=== PATIENT | male | born 1935 | race Caucasian/White ===

== ENCOUNTER 2020-05-30 13:33 | Emergency (ER) | payer MEDICARE ==
[~2020-05-30] VITALS: Ht 177.8 cm; Wt 82.0 kg
--- NOTE | 2020-05-30 13:40 | NUR ---
UNABLE TO GET BP AND TEMP. PT IN TOO MUCH PAIN IN TRIAGE
[2020-05-30] MEDS ORDERED: ONDANSETRON 2MG/ML, 2ML ONE (13:50)
[2020-05-30] MEDS ORDERED: MORPHINE SULFATE 4 MG/ML, 1ML ONE ×2 (13:51→14:21)
[2020-05-30] MEDS: MORPHINE SULFATE 4 MG/ML, 1ML IVPush PRN ×2 (13:52→14:22)
[2020-05-30] MEDS ORDERED: SODIUM CHLORIDE FLUSH 10ML SYR IVF ONE (14:00)
[2020-05-30] MEDS ORDERED: ONDANSETRON 2MG/ML, 2ML IVPush ONE (14:00)
--- NOTE | 2020-05-30 14:24 | NUR ---
PT MEDICTED PER MAR FOR PAIN
[2020-05-30] MEDS ORDERED: PROPOFOL 10 MG/ML, 20ML IVPush ONE (14:30)
[2020-05-30] MEDS ORDERED: PROPOFOL 10 MG/ML, 20ML ONE (14:41)
--- NOTE | 2020-05-30 15:25 | NUR ---
RN, TECH X2, MD AND PA AT BEDSIDE FOR CONSCIOUS SEDATION AND L SHOULDER REDUCTION. MD ADMINISTERED 70MG OF IV PROPROFOL, GOOD SEDATION ACHEIVED, THEN MD AND PA ABLE TO REDUCE SHOULDER. FOLLOW UP IMAGING ORDERED. PT THEN NOTED TO BE COME APNEIC, RN BAGGED PT WITH GOOD CHEST RISE AND FALL. MD AND RN X3 IN ROOM TO ASSIST, AFTER A COUPLE RESCUE BREATHS PT ABLE TO BECOME MORE ALERT AND START TAKING SPONTANEOUS RESPIRATIONS. TECH ABLE TO PLACE SHOULDER IMMOBILIZER, XRAY IN ROOM TO TAKE IMAGES. PT NOW MORE ALERTY, ANSWERS QUESTIONS APPROPRIATELY. MOVING ALL EXTRMITIES. RN CONTINUES AT BEDSIDE TO MONITOR. PT NOW VERY TALKATIVE.
--- NOTE | 2020-05-30 15:38 | NUR ---
PT BROTHER IN ROOM. PT STILL NEEDS SUPPLEMENTAL O2 TO MAINTAIN SATURATION ABOUT 95%, PT SAT UP AND ENCOURAGED TO COUGH AND DEEP BREATHE, FOLLOWS COMMANDS WELL. PT SATTING WELL ON NC AT 3L/MIN. NO SIGNS OR SYMPTOMS OF ACUTE DISTRESS NOTED, PT CONVERSING IN LONG SENTENCES, RESPIRATIONS EVEN AND UNLABORED.RN AT BEDSIDE TO MONITOR.
--- NOTE | 2020-05-30 16:09 | NUR ---
REG AT BESIDE TO TAKE INFORMATION, RN X2 AT BEDSIDE TO ASSESS. PT CONTINUES TO HAVE LOW O2 SATURATION ON ROOM AIR, RN AT BEDSIDE TO MONITOR AND TITRATE OXYGEN. PT IN BED, ALERT AND CONVERSANT. DENIES PAIN, NO SIGNS OR SYMPTOMS OF ACUTE DISTRESS NOTED RESPIRATIONS EVEN AND UNLABORED. ETCO2 30.
--- NOTE | 2020-05-30 16:14 | NUR ---
DR REYES AT BEDSIDE TO ASSESS STATES THAT PT IS READY TO DC. PT GIVEN INSTRUCTIONS FOR FOLLOW UP AND SPLINT USAGE, EDUCATED ON PROPER SHOULDER EXERCISES TO DO. PT AND BROTHER VERBALIZE UNDERSTANDING AND AGREEMENT. NO SIGNS OR SYMPTOMS OF ACUTE DISTRESS NOTED, RESPIRATIONS EVEN AND UNLABORED
[2020-05-30 16:22] VITALS: BP 137/77
== END 2020-05-30 16:25 | disposition home or self-care (01) ==
LOC: ED 16:10
DX: S43.005A Unspecified dislocation of left shoulder joint, initial encounter (principal); X58.XXXA Exposure to other specified factors, initial encounter; Y93.89 Activity, other specified; Y92.89 Other specified places as the place of occurrence of the external cause; Y99.8 Other external cause status
CPT/HCPCS: 23650; 73020; 73030; 96374; 96375; 99285; J2270; J2405